=== PATIENT | male | born 1995 | race Caucasian/White ===

== ENCOUNTER 2019-05-04 03:28 | Inpatient (IN) ==
[2019-05-04 04:22] LABS: Basophils # (auto) 0.01 K/uL (0-0.2); Basophils % (auto) 0.2 %; Eosinophils # (auto) 0.04 K/uL (0-0.5); Eosinophils % (auto) 0.8 %; Hematocrit (blood only) 39.8 % (42-52); Hemoglobin 14.2 g/dL (14.0-18.0); Immature Granulocytes # (auto) 0.01 K/uL (0.00-0.02); Immature Granulocytes % (auto) 0.2 %; Lymphocytes # (auto) 1.65 K/uL (1.2-3.4); Lymphocytes % (auto) 32.5 %; Mean Corpuscular Hgb Conc 35.7 g/dL (32-36); Mean Corpuscular Volume 88.1 fL (80-100); Mean Platelet Volume 10.7 fL (7.4-10.4); Monocytes # (auto) 0.18 K/uL (0.11-0.59); Monocytes % (auto) 3.6 %; Neutrophils # (auto) 3.18 K/uL (1.4-6.5); Neutrophils % (auto) 62.7 %; Platelet Count 222 K/uL (130-400); RDW Coefficient of Variation 11.9 % (11.5-14.5); RDW Standard Deviation 38.3 fL (36.4-46.3); Red Blood Count 4.52 M/uL (4.7-6.1); White Blood Count 5.07 K/uL (4.8-10.8)
[2019-05-04 04:33] LABS: Albumin Level 4.6 gm/dl (3.4-5.0); BUN Creatinine Ratio 11.4 (10-20); Calcium 8.8 mg/dl (8.5-10.1); Creatinine Clr Calc Pharmacy 93.9 ml/min; Est GFR (African American) 89.8; Est GFR (Non-African American) 77.5
[2019-05-04 04:36] LABS: Acetaminophen < 2 ug/ml (10-30); Salicylate < 1.7 mg/dl (2.8-20)
[2019-05-04 04:43] LABS: Albumin Globulin Ratio 1.5 (0.9-2); Bilirubin,Total 0.7 mg/dl (0.2-1); Globulin 3.1 gm/dl (2.5-4.0); Total Protein 7.7 gm/dl (6.4-8.2)
[2019-05-04 04:44] LABS: Appearance Urine Clear (Clear); Bilirubin Urine Negative (Negative); Blood Urine Negative (Negative); Color Urine Yellow; Glucose Urine UA Negative (Negative); Ketones Urine Negative (Negative); Leukocyte Esterase Urine Negative (Negative); Nitrite Urine Negative (Negative); Protein Urine Negative (Negative); Specific Gravity Urine 1.012 (1.000-1.030); Urobilinogen Urine Negative (Negative); pH Urine 5.5 (4.5-7.5)
[2019-05-04 05:04] LABS: Amphetamines+Metham, Urine Neg (Neg); Barbiturates, Urine Neg (Neg); Benzodiazepine, Urine Neg (Neg); Cocaine, Urine Neg (Neg); MDMA (Ecstacy), Urine Neg (Neg); Methadone, Urine Neg (Neg); Opiate, Urine Neg (Neg); Phencyclidine, Urine Neg (Neg)
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
[2019-05-04] MEDS ORDERED: IBUPROFEN 600 MG TAB PO ONE (07:30)
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
[2019-05-04] MEDS ORDERED: ACETAMINOPHEN 325 MG TAB PO PRN (13:29)
[2019-05-04] MEDS ORDERED: SODIUM CHLORIDE 0.65% NA SOLN 45 ML (OCEAN) PRN (13:29)
[2019-05-04] MEDS ORDERED: BISMUTH SUBSALICYLATE PER ML OMNICELL CHARGE PO PRN (13:29)
[2019-05-04] MEDS ORDERED: MAGNESIUM HYDROXIDE SUSP 30 ML UDC PO PRN (13:29)
[2019-05-04] MEDS ORDERED: ALUMINUM/MAGNESIUM SUSP 30 ML UDC PO PRN (13:29)
--- NOTE | 2019-05-04 14:38 | History & Physical ---
Date of Service May 04, 2019 Impression / Recommendations Impression 24-year-old male admitted involuntarily for inpatient psychiatric treatment due to impulsive, highly dangerous behavior while intoxicated. Pt demonstrated very poor, and possibly life-threatening judgment in the context of alcohol use and had obtained a gun with concern from girlfriend he would use it to harm himself or her. Girlfriend felt patient was unsafe to remain at home and called police, who brought the patient to the ED. Given high risk of harm to self and others without adequate intervention, the patient was admitted for observation and treatment. Based on reports from patient alone, there is no clear criteria for an underlying psychiatric condition - though behavior demonstrated prior to admission is highly concerning. If left unaddressed, his habits and impulsive behavior are likely to result in harm to the patient or another individual. We will hold off on initiating psychotropic medications, as there is not a clear diagnosis of depression, anxiety, or other mood disorder. We will attempt to gather collateral information from the patient's girlfriend or family members regarding his mood and other behaviors. Will encourage a family meeting with supports to discuss aftercare and discharge planning. Pt will be encouraged to participate in group and recreational programming during his admission. Until further collateral can be obtained and safety planning can be discussed, patient is at high risk of harm to self or others. Inpatient psychiatric treatment is medically necessary at this time. Dr. Kayla Martin was directly involved in review and discussion of the patient's case and participated in medical decision making regarding treatment recommendations. (1) Alcohol overdose: 05/04 - Admitted to a locked inpatient behavioral health unit, on q15 minute safety checks - Encourage medication initiation/adjustments as indicated - Encourage participation in group and recreational therapies - Gather collateral information from outpatient providers - Suggest family meeting to involve outpatient supports in safety planning - Arrange appropriate aftercare - Pt denies symptoms consistent with an underlying mood disorder, though it would be beneficial to gather collateral information from other supports as patient may be minimizing symptoms. Continue to gather information, differential includes a depressive disorder, substance-induced mood disorder, as well as other possible concerns. Without collateral information to suggest otherwise, there is little indication to begin psychotropic medication to target mood or anxiety at this time. - Based on patient's reports alone, alcohol use does not seem to be significant with regard to frequency, but definitely harmful in regard to destructive behavior and lack of impulse control when intoxicated. - Brief intervention was offered and accepted Intervention was greater than 5 min in length. Brief interventions include: 1. Assess Readiness to Quit, 2. Advise: Help Patient to Reduce or Abstain from Alcohol, 3. Agree: Set Specific, Feasible Goals, 4. Assist: Anticipate barriers, Problem-Solving Solutions. Social work to 5. Arrange: Referrals to appropriate treatment. Summary of intervention: The patient is in the contemplative stage with regards to transtheoretical model of change. The patient is advised to decrease alcohol consumption due to depressant effects and risk of interactions with prescription medications. The patient was advised of recommendations for abstinence from alcohol and other abusable substances and to attend substance abuse treatment at discharge, and will be provided with recovery materials to continue to education self on how to cope with their condition without drinking. Encounter type: initial encounter Injury intent: accidental or unintentional Qualified Code(s): T51.91XA - Toxic effect of unspecified alcohol, accidental (unintentional), initial encounter Inventory Assets Strengths: Intelligence, supportive family, recognition of alcohol use concerns Needs: Services to address alcohol use, therapeutic intervention regarding behaviors Risk Factors Assessment Male: Yes : Yes Do You Have Access To A Gun?: Yes (currently secured by police) Health Problems: No Mental Health Diagnoses: No Substance Use Disorders: No Previous Attempt: No Family History of Suicide: Yes (remote, aunt who was unknown to patient) Previous Psychiatric Hospitalization: No Hopelessness: No Smoker: No Protective Factors Assessment Taoist Beliefs: Yes : No Responsible for Young Children: No 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 Pt denies a psychiatric history, but was admitted on 05/04/19 13:11 on a 302 involuntary commitment for impulsive behavior in the context of alcohol intoxication with very high risk for harm to self or others - having grabbed a gun, loaded it, and made serious threats. Information is gathered from ED documentation and the patient himself and is considered to be mostly reliable. Chief Complaint "I got drunk. I got drunk and got into an argument with my girlfriend." History of Present Illness Ismael Contreras is a 24-year-old male admitted involuntarily for inpatient psychiatric treatment on 05/04/19 due to highly lethal behavior demonstrated in the context of an argument with his girlfriend while he was under the influence. ED documentation states the patient was brought to the ED by police after the girlfriend had called, concerned for the safety of herself and the patient. They had reportedly been at a republican and began an argument on the walk home. Pt reportedly became belligerent and impulsive, having thrown objects and yelled insults at the girlfriend. Ultimately, patient had returned to their home and reportedly began throwing objects in the house at his girlfriend, and then took his gun out from under the bed, loaded it, and reportedly stated, "you made me do this, I hope you are happy." Pt's girlfriend left the room and called police, there is no clear indication if patient had directed the gun at either himself or his girlfriend. After medical clearance was granted, ED physician was recommending inpatient psychiatric treatment as it continued to seem patient was unsafe to return home. Pt was unwilling for this and a 302 involuntary commitment was pursued. Upon evaluation today, the patient admits that he was intoxicated and made poor decisions. Pt agrees that he and his girlfriend were engaged in an argument, though he is not sure the topic. He states, "it was stupid I'm sure, something that started out normal and then went political. I was angry so I left. When I came back I was locked out and that set me off." Pt states he gained access to the home by climbing onto the roof and sneaking in through a window where an AC unit was placed. He admits to throwing objects around the room and eventually reaching for his gun. Pt states "I don't know why I did it, it was stupid. I think I wanted her to feel bad, but I don't know. It was stupid and manipulative, and not ok." Pt admits to this is the most these events have escalated, but states he has a tendency to become belligerent when intoxicated. Pt reports heavy drinking "1-2 times a year, maybe," but states aggression and poor impulse control are not uncommon. Pt denies history of other substance abuse. Pt denies symptoms related to depression, anxiety, or a bipolar presentation. He has not known psychiatric history and no history of substance abuse treatment aside from ramifications from an underage drinking violation during his undergraduate studies. Pt does not feel he has any psychiatric symptoms requiring attention at this time. He admits to willingness to involve his girlfriend in a family meeting to discuss further. Pt denies SI, HI, SIB, A/V hallucinations, paranoia, nikhil/hypomania, other symptoms more suggestive of a bipolar presentation, OCD, PTSD, eating disorder, and other specific psychiatric symptoms. Past Psychiatric History Previous Psych History: None Current Psychiatric Diagnosis: None Outpatient Services: None Previous Psych Admissions: None Do You Have Access To A Gun?: Yes (currently secured by police) History of Previous Suicide Attempt: No Past Medication Trials: None Past Head Trauma/Neuro History History of Concussion/Seizure: Yes (1 confirmed concussion from high school sports injury) Allergies Allergy/AdvReac Type Severity Reaction Status Date / Time No Known Allergies Allergy Unverified 05/04/19 04:15 Home Medications Home Medications Medication Instructions Recorded Confirmed Type No Known Home Medications 05/04/19 05/04/19 History Family History Family History of: Suicide Completion (aunt, who was unknown to patient) Family Mental Health History Comment: Sister - "on medication for something, I just found out but I don't know what" Alcohol History Hx of Alcohol Use Over the Past 12 Months: Yes (Occassionally) Admits to alcohol use socially "occasionally" - limited to 1-2 beers with girlfriend or their parents. Pt admits to excessive, un-quantified alcohol use "a couple times a year", but admits to becoming belligerent and lacking impulse control. Pt reports cutting back on his alcohol use since his years in [facility]. Pt has a previous charge for underage drinking and public i ntoxication. Smoking Use Smoking Status: Never smoker Substance History Hx of Prescription Med Misuse Over the Past 12 Months: No Hx of Over the Counter Med Misuse Over the Past 12 Months: No Hx of Inhalent Misuse Over the Past 12 Months: No Hx of Organic Substance Use Over the Past 12 Months: No Hx of Illegal Substances/Street Drug Use Over Past 12 Months: No Personal History Living Arrangements: Apartment (with girlfriend) Born In: [place], [place] Childhood: Pt was raised by mother and father who remain . He has an older brother and older sister. 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 Physical Exam Psychiatric: Orientation: alert, oriented x 3 and cooperative (and pleasant) Apperance: appropriately dressed and appropriately groomed male appearing to be of healthy weight, casually dressed in t-shirt and gym shorts. Pt is well-groomed with short hair style and clean-shaven. Level of hygiene and hydration appear adequate. Eye Contact: good eye contact Motor Behavior: steady gait and station and no abnormal motor movements Speech: normal rate/rhythm/volume of speech Affect: euthymic affect and + tearful affect (initially, as had just gotten off phone with mother) Mood: no depressed mood and no anxious mood Thought Process: goal directed thought process, linear/logical thought process and clear/coherent thought process Thought Co ntent: reality based without delusions; no hopelessness and no worthlessness Suicidal Thoughts: denies suicidal thoughts and denies suicidal plan Homicidal Thoughts: denies homicidal thoughts Hallucinations: no auditory hallucinations and no visual hallucinations Cognition: remote memory grossly intact, attention grossly intact and language grossly intact Estimated Intelligence: consistent with education level Insight: + fair insight Judgement: + fair judgement Vital Signs (Past 24 Hours): Last Vital Signs Temp 36.9 C 05/04/19 03:33 Pulse 86 05/04/19 12:16 Resp 18 05/04/19 12:16 BP 150/69 H 05/04/19 12:16 Pulse Ox 99 05/04/19 12:16 Exam Statement: A physical exam was performed in the ER prior to admission to the unit by Dr. Betsey Walker DO. I accept that physical as correct/medical clearance for the inpatient physical exam. Results & Data Laboratory Results Laboratory Results - last 24 hr 05/04/19 05/04/19 05/04/19 04:01 04:01 04:01 WBC 5.07 RBC 4.52 L Hgb 14.2 Hct 39.8 L MCV 88.1 MCH 31.4 MCHC 35.7 RDW Std Deviation 38.3 RDW Coeff of Myron 11.9 Plt Count 222 MPV 10.7 H Immature Gran % (Auto) 0.2 Neut % (Auto) 62.7 Lymph % (Auto) 32.5 [place] % (Auto) 3.6 Eos % (Auto) 0.8 Baso % (Auto) 0.2 Immature Gran # (Auto) 0.01 Neut # (Auto) 3.18 Lymph # (Auto) 1.65 [place] # (Auto) 0.18 Eos # (Auto) 0.04 Baso # (Auto) 0.01 Sodium 137 Potassium 4.0 Chloride 105 Carbon Dioxide 25 Anion Gap 7.0 BUN 15 Creatinine 1.27 Est Cr Clr Drug Dosing 93.9 Est GFR ( Amer) 89.8 Est GFR (Non-Af Amer) 77.5 BUN/Creatinine Ratio 11.4 Glucose 93 Calcium 8.8 Total Bilirubin 0.7 AST 53 H ALT 63 Alkaline Phosphatase 51 Total Protein 7.7 Albumin 4.6 Globulin 3.1 Albumin/Globulin Ratio 1.5 TSH 2.230 Urine Color Urine Appearance Urine pH Ur Specific [place] Urine Protein Urine Glucose (UA) Urine Ketones Urine Blood Urine Nitrite Urine Bilirubin Urine Urobilinogen Ur Leukocyte Esterase Salicylates < 1.7 L Urine Opiates Screen Ur Methadone, Qual Acetaminophen < 2 L Urine Barbiturates Ur Phencyclidine (PCP) U Amphetamin/Meth Scrn MDMA (Ecstasy) Screen U Benzodiazepines Scrn Ur Cocaine Metabolite U Marijuana (THC) Screen Ethyl Alcohol mg/dL 05/04/19 05/04/19 05/04/19 04:01 04:32 04:32 WBC RBC Hgb Hct MCV MCH MCHC RDW Std Deviation RDW Coeff of Myron Plt Count MPV Immature Gran % (Auto) Neut % (Auto) Lymph % (Auto) [place] % (Auto) Eos % (Auto) Baso % (Auto) Immature Gran # (Auto) Neut # (Auto) Lymph # (Auto) [place] # (Auto) Eos # (Auto) Baso # (Auto) Sodium Potassium Chloride Carbon Dioxide Anion Gap BUN Creatinine Est Cr Clr Drug Dosing Est GFR ( Amer) Est GFR (Non-Af Amer) BUN/Creatinine Ratio Glucose Calcium Total Bilirubin AST ALT Alkaline Phosphatase Total Protein Albumin Globulin Albumin/Globulin Ratio TSH Urine Color Yellow Urine Appearance Clear Urine pH 5.5 Ur Specific [place] 1.012 Urine Protein Negative Urine Glucose (UA) Negative Urine Ketones Negative Urine Blood Negative Urine Nitrite Negative Urine Bilirubin Negative Urine Urobilinogen Negative Ur Leukocyte Esterase Negative Salicylates Urine Opiates Screen Neg Ur Methadone, Qual Neg Acetaminophen Urine Barbiturates Neg Ur Phencyclidine (PCP) Neg U Amphetamin/Meth Scrn Neg MDMA (Ecstasy) Screen Neg U Benzodiazepines Scrn Neg Ur Cocaine Metabolite Neg U Marijuana (THC) Screen Neg Ethyl Alcohol mg/dL 200.0 H Current Inpatient Medications Current Inpatient Medications: Current Inpatient Medications Acetaminophen (Tylenol) 650 mg PO Q4H PRN PRN Reason: Headache or Minor Fever Stop: 06/03/19 13:28 Al Hydrox/Mg Hydrox/Simethicone (Maalox) 30 ml PO Q4H PRN PRN Reason: GI Upset Stop: 06/03/19 13:28 Bismuth Subsalicylate (Kaopectate) 15 ml PO PRN PRN PRN Reason: Loose Stool Stop: 06/03/19 13:28 Hydroxyzine HCl (Vistaril) 50 mg PO HSZ PRN PRN Reason: Insomnia Stop: 06/03/19 13:28 Hydroxyzine HCl (Vistaril) 25 mg PO Q4H PRN PRN Reason: Anxiety Stop: 06/03/19 13:28 Magnesium Hydroxide (Milk Of Magnesia) 30 ml PO DAILY PRN PRN Reason: Heartburn Stop: 06/03/19 13:28 Sodium Chloride ([place] Nasal) 1 - 2 sprays NA PRN PRN PRN Reason: Nasal Dryness/Congestion Stop: 06/03/19 13:28 CPT Code CPT Code Initial Hospital Care: [id number]
[2019-05-04] MEDS ORDERED: IBUPROFEN 600 MG TAB PO PRN (15:12)
--- NOTE | 2019-05-05 10:55 | Psychiatric Progress Note ---
Date of Service May 05, 2019 Impression / Recommendations Impression 24-year-old male admitted involuntarily for inpatient psychiatric treatment after an incident with his girlfriend where he caused property damage in his home, broke a door and multiple items, then got out a hand gun, loaded it, and told his girlfriend "I hope you're happy, this is your fault, you made me do this." Police were called and in the emergency room, he was unwilling for voluntary treatment and was admitted involuntarily. He has been cooperative here on the unit and has a meeting with his girlfriend today. He is indicating willingness to abstain from alcohol and is considering outpatient counseling. The differential diagnosis includes major depressive disorder (although he reports minimal mood symptoms, we will need to get collateral information from his girlfriend), substance-induced mood disorder, intermittent explosive disorder, alcohol use disorder. Inpatient treatment is medically necessary due to the risk of harm to himself if discharged prematurely and need to continue to monitor and assess while collecting collateral information and arranging appropriate aftercare. (1) Alcohol overdose: 05/04 - Admitted to a locked inpatient behavioral health unit, on q15 minute safety checks - Encourage medication initiation/adjustments as indicated - Encourage participation in group and recreational therapies - Gather collateral information from outpatient providers - Suggest family meeting to involve outpatient supports in safety planning - Arrange appropriate aftercare - Pt denies symptoms consistent with an underlying mood disorder, though it would be beneficial to gather collateral information from other supports as patient may be minimizing symptoms. Continue to gather information, differential includes a depressive disorder, substance-induced mood disorder, as well as other possible concerns. Without collateral information to suggest otherwise, there is little indication to begin psychotropic medication to target mood or anxiety at this time. - Based on patient's reports alone, alcohol use does not seem to be significant with regard to frequency, but definitely harmful in regard to destructive behavior and lack of impulse control when intoxicated. - Brief intervention was offered and accepted Intervention was greater than 5 min in length. Brief interventions include: 1. Assess Readiness to Quit, 2. Advise: Help Patient to Reduce or Abstain from Alcohol, 3. Agree: Set Specific, Feasible Goals, 4. Assist: Anticipate barriers, Problem-Solving Solutions. Social work to 5. Arrange: Referrals to appropriate treatment. Summary of intervention: The patient is in the contemplative stage with regards to transtheoretical model of change. The patient is advised to decrease alcohol consumption due to depressant effects and risk of interactions with prescription medications. The patient was advised of recommendations for abstinence from alcohol and other abusable substances and to attend substance abuse treatment at discharge, and will be provided with recovery materials to continue to education self on how to cope with their condition without drinking. 05/05 -Most likely diagnosis based on available information is alcohol use disorder, although will be helpful to get collateral from girlfriend to help rule out depression and intermittent explosive disorder. -Continue recovery protocol. -Family meeting with girlfriend today. -Discussed recommendation for outpatient therapy, patient may benefit from a therapist who can help explore his anger issues as well as alcohol misuse. He is considering this but is unsure whether or not he thinks it would be helpful. Inventory Assets Strengths: Intelligence, supportive family, recognition of alcohol use concerns Needs: Services to address alcohol use, therapeutic intervention regarding behaviors Risk Factors Assessment Male: Yes : Yes Do You Have Access To A Gun?: Yes (currently secured by police) Health Problems: No Mental Health Diagnoses: No Substance Use Disorders: No Previous Attempt: No Family History of Suicide: Yes (remote, aunt who was unknown to patient) Previous Psychiatric Hospitalization: No Hopelessness: No Smoker: No Protective Factors Assessment Temple Beliefs: Yes : No Responsible for Young Children: No 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 Chief Complaint "I feel really bad for my girlfriend, and my parents, for what I did and everything". Review of Systems Notes Denies symptoms of alcohol withdrawal (sweating, tremor, headache, nausea) Sleep Information Total Hours of Sleep: 6.5 Meal Information Percent Meal Consumed - Breakfast: 100 Percent Meal Consumed - Dinner: 80 Subjective Subjective Patient was seen & assessed and interval progress reviewed. Per staff, he has been engaged in treatment, talked about his problems with anger and drinking, and is willing to work towards abstinence. He has been attending and participating in groups. He has a family meeting scheduled with his girlfriend this afternoon. On my assessment, he reports feeling badly about the events prior to admission, but continues to deny symptoms consistent with depression and anxiety. He describes himself as "laid back," denies significant stressors, and reports good support from his girlfriend and family. He admits to problems with anger, which occur solely when intoxicated, and are infrequent. 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 He states that he does not drink frequently, and typically has 1 drink socially with friends or family, and only rarely drinks to excess. He denies urges to drink, other than when he is already intoxicated. He states his plan is to abstain from alcohol, which his girlfriend is in support of. He is willing to consider therapy to explore underlying anger issues, but is not sure if it is warranted. 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 Physical Exam Psychiatric Orientation: alert, oriented x 3 and cooperative Apperance: appropriately dressed, appropriately groomed and appeared stated age Eye Contact: good eye contact Motor Behavior: steady gait and station and no abnormal motor movements Speech: normal rate/rhythm/volume of speech Affect: euthymic affect (Mildly anxious) "I feel bad about what happened." Thought Process: goal directed thought process Thought Content: reality based without delusions Suicidal Thoughts: denies suicidal thoughts Homicidal Thoughts: denies homicidal thoughts Hallucinations: no auditory hallucinations Cognition: recent memory grossly intact, attention grossly intact and language grossly intact Estimated Intelligence: consistent with education level Insight: + fair insight Judgement: + fair judgement Vital Signs (Past 24 Hours) Last Vital Signs Temp 36.4 C L 05/05/19 06:43 Pulse 74 05/05/19 06:45 Resp 16 05/05/19 06:43 BP 142/88 H 05/05/19 06:45 Pulse Ox 99 05/04/19 12:16 Results & Data Current Inpatient Medications Current Inpatient Medications: Current Inpatient Medications Acetaminophen (Tylenol) 650 mg PO Q4H PRN PRN Reason: Headache or Minor Fever Stop: 06/03/19 13:28 Al Hydrox/Mg Hydrox/Simethicone (Maalox) 30 ml PO Q4H PRN PRN Reason: GI Upset Stop: 06/03/19 13:28 Bismuth Subsalicylate (Kaopectate) 15 ml PO PRN PRN PRN Reason: Loose Stool Stop: 06/03/19 13:28 Hydroxyzine HCl (Vistaril) 50 mg PO HSZ PRN PRN Reason: Insomnia Stop: 06/03/19 13:28 Hydroxyzine HCl (Vistaril) 25 mg PO Q4H PRN PRN Reason: Anxiety Stop: 06/03/19 13:28 Ibuprofen (Motrin) 600 mg PO Q6H PRN PRN Reason: Pain Stop: 06/03/19 15:11 Magnesium Hydroxide (Milk Of Magnesia) 30 ml PO DAILY PRN PRN Reason: Heartburn Stop: 06/03/19 13:28 Sodium Chloride ([place] Nasal) 1 - 2 sprays NA PRN PRN PRN Reason: Nasal Dryness/Congestion Stop: 06/03/19 13:28 Post Discharge Appointments Primary Care Physician Name Of Family Doctor: None Therapist Name of Therapist: None Carburizing Furnace Operator Name of Carburizing Furnace Operator: None CPT Code CPT Code 81347 (1) Alcohol overdose Encounter type: initial encounter Injury intent: accidental or unintentional Qualified Code(s): T51.91XA - Toxic effect of unspecified alcohol, accidental (unintentional), initial encounter
--- NOTE | 2019-05-06 09:36 | Discharge Summary ---
Date of Service May 06, 2019 History of Present Illness Asad Contreras is a 24-year-old male admitted involuntarily for inpatient psychiatric treatment on 05/04/19 due to highly lethal behavior demonstrated in the context of an argument with his girlfriend while he was under the influence. ED documentation states the patient was brought to the ED by police after the girlfriend had called, concerned for the safety of herself and the patient. They had reportedly been at a republic[employer] and began an argument on the walk home. Pt reportedly became belligerent and impulsive, having thrown objects and yelled insults at the girlfriend. Ultimately, patient had returned to their home and reportedly began throwing objects in the house at his girlfriend, and then took his gun out from under the bed, loaded it, and reportedly stated, "you made me do this, I hope you are happy." Pt's girlfriend left the room and called police, there is no clear indication if patient had directed the gun at either himself or his girlfriend. After medical clearance was granted, ED physician was recommending inpatient psychiatric treatment as it continued to seem patient was unsafe to return home. Pt was unwilling for this and a 302 involuntary commitment was pursued. Upon evaluation today, the patient admits that he was intoxicated and made poor decisions. Pt agrees that he and his girlfriend were engaged in an argument, though he is not sure the topic. He states, "it was stupid I'm sure, something that started out normal and then went political. I was angry so I left. When I came back I was locked out and that set me off." Pt states he gained access to the home by climbing onto the roof and sneaking in through a window where an AC unit was placed. He admits to throwing objects around the room and eventually reaching for his gun. Pt states "I don't know why I did it, it was stupid. I think I wanted her to feel bad, but I don't know. It was stupid and manipulative, and not ok." Pt admits to this is the most these events have escalated, but states he has a tendency to become belligerent when intoxicated. Pt reports heavy drinking "1-2 times a year, maybe," but states aggression and poor impulse control are not uncommon. Pt denies history of other substance abuse. Pt denies symptoms related to depression, anxiety, or a bipolar presentation. He has not known psychiatric history and no history of substance abuse treatment aside from ramifications from an underage drinking violation during his undergraduate studies. Pt does not feel he has any psychiatric symptoms requiring attention at this time. He admits to willingness to involve his girlfriend in a family meeting to discuss further. Pt denies SI, HI, SIB, A/V hallucinations, paranoia, nikhil/hypomania, other symptoms more suggestive of a bipolar presentation, OCD, PTSD, eating disorder, and other specific psychiatric symptoms. Physical Exam Psychiatric Orientation: alert, oriented x 3 and cooperative (and pleasant) Apperance: appropriately dressed, appropriately groomed and appeared stated age Eye Contact: good eye contact Motor Behavior: steady gait and station and no abnormal motor movements Speech: normal rate/rhythm/volume of speech Affect: euthymic affect "I feel like I'm doing really well." Thought Process: goal directed thought process, linear/logical thought process and clear/coherent thought process Thought Content: reality based without delusions; no hopelessness, no worthlessness and no guilt Suicidal Thoughts: denies suicidal thoughts, denies suicidal plan and denies suicidal intent Homicidal Thoughts: denies homicidal thoughts Hallucinations: no auditory hallucinations and no visual hallucinations Cognition: recent memory grossly intact, remote memory grossly intact, attention grossly intact and language grossly intact Estimated Intelligence: consistent with education level Insight: good insight Judgement: good judgement Vital Signs (Past 24 Hours) Last Vital Signs Temp 36.4 C L 05/06/19 06:44 Pulse 80 05/06/19 06:45 Resp 18 05/06/19 06:44 BP 128/80 05/06/19 06:45 Pulse Ox 99 05/04/19 12:16 Principal Diagnosis No clear psychiatric disorder; alcohol intoxication/overdose Psychiatric Data 24-year-old male admitted involuntarily for inpatient psychiatric treatment on 05/04/19 due to impulsive behavior with high lethal potential in the context of alcohol intoxication and an argument with his girlfriend. Pt was felt to be unsafe to return home by girlfriend who is one of his main supports. Psychiatric evaluation and treatment was recommended to determine the presence of an underlying psychiatric condition and to rule out the presence of suicidal or homicidal ideation outside of the context of substance abuse. Given the highly lethal risk of his actions, it was also important to gather collateral information from outpatient supports prior to determining that patient was safe for discharge home. Pt was evaluated and admitted to history of anger, agitation, and impulsive/destructive behavior within the context of alcohol use. He did not verbalize symptoms consistent with a depressive disorder or anxiety. No obvious criteria for hypomania/nikhil, and SI/HI was denied. Based on these reports, there was no indication to initiate psychotropic medications. During the patient's admission, he was willing to have his girlfriend involved in a family meeting to discuss any concerns and to ensure supports felt comfortable with him returning home. Pt had acknowledged the drastic change in behavior with alcohol use, and determined that he needs to abstain from alcohol. He was accepting of referrals for D&A counseling to assist him in this process. Girlfriend had denied any concerns with regard to an underlying psychiatric condition. They both felt comfortable with the patient returning home, and aftercare and discharge planning was discussed. At time of discharge, patient was future oriented and continued to deny SI/HI. He had participated appropriately in group and recreational therapies and was supportive of peers. Pt denies any concerns related to the idea of discharge. At this time, he does not appear to be at acute risk of harm to himself or others and acknowledges steps necessary to prevent future events such as this from occurring. 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 Pt verbalized understanding of discharge plan and is agreeable with discharge home today. Day of Discharge Assessment Patient's case was reviewed and discussed during treatment team. Staff reports the patient has continued to participate in group and recreational programming, and has been supportive of peers. Meeting with girlfriend was held over the weekend, no underlying mental health concerns could be illicited. Pt was seen today to assess readiness for discharge. Pt states he is doing "really well." He states he is hopeful for discharge today. He felt the time he spent on the unit to be beneficial, but admits to feeling somewhat out of place as he does not feel that he really struggles with psychiatric concerns or with substance abuse. Pt states, "it's not like I crave alcohol, I can go a long time without drinking - and I don't always end up acting like this." Pt agrees with recommendation for D&A counseling and other outpatient resources. This provider acknowledged that the patient does not entirely fit the typical presentation of a substance abuser, but that it will still be beneficial to equip himself with necessary tools to abstain from alcohol in order to prevent progression of concerns as well as to avoid future incidents similar to what led to his admission. Pt is understanding of this, and feels it will be helpful to have these tools. Pt states he has had communication with his girlfriend, his parents, and her parents to discuss concerns and they all feel the patient does not yet have a substance abuse problem - but agree that he would benefit from abstaining from alcohol. Pt does not feel that this will be a difficult task. Pt feels ready for discharge today and denies any acute concerns. Based on review of patient's case and their current presentation, risk of harm to self or others is no longer perceived to be acute. Management of symptoms on an outpatient basis seems the most appropriate and least restrictive setting. Pt seems appropriate for discharge with recommendation for consistent follow-up with outpatient therapist. Pt verbalized understanding of discharge plan reviewed and is agreeable with plan to be discharged home today. ROS: Constitutional: denied Cardiovascular: denied Respiratory: denied Gastrointestinal: denied Neurological: denied Psychiatric: denies symptoms other than stated above Total of at least 10 systems reviewed, pertinent positives as above and in HPI. Transition of Care Transition Of Care Record: was reviewed with the patient Advance Directives Advance Directives Information Provided: Yes Advance Directives: No Mental Health Advance Directive: No Advance Directives on File: No Living Will: No Power of Valet: No Advance Directives Reason:: Declines as Mental Health Visit. Risk Factors Assessment Presenting risk factors reviewed on discharge. Precipitating stressors mitigated by: admission for inpatient psychiatric observation and treatment, attendance of therapeutic treatment groups, development of healthy and effective coping strategies, involvement of outpatient supports, completion of a safety plan, confirmation of guns and weapons being secured, discussion regarding substance abuse and effects on mental health diagnoses, and education on diagnoses. Pt has demonstrated improvement in condition with regard to involvement of and communication with supports and referral for D&A counseling. At this time, patient is requesting discharge and is no longer considered to be at acute risk of harm to himself or others. Pt will be discharged with recommendation for ongoing outpatient psychiatric treatment. Male: Yes : Yes Do You Have Access To A Gun?: Yes (currently secured by police) Health Problems: No Mental Health Diagnoses: No Substance Use Disorders: No Previous Attempt: No Family History of Suicide: Yes (remote, aunt who was unknown to patient) Previous Psychiatric Hospitalization: No Hopelessness: No Smoker: No Protective Factors Assessment Christian Beliefs: Yes : No Responsible for Young Children: No Employed: Yes ([employer]) Stable Relationships: Yes Supportive Family: Yes Tobacco Cessation at Discharge Tobacco Cessation Medication Prescribed at Discharge: Not Applicable/Non-Smoker Total Time Total Time Spent: Greater Than 30 Minutes Total Time Includes: Examination of the patient, Discharge Planning, Medication Reconciliation and Communication with other providers Discharge Data Lab Results 05/04/19 05/04/19 05/04/19 04:01 04:01 04:01 WBC 5.07 RBC 4.52 L Hgb 14.2 Hct 39.8 L MCV 88.1 MCH 31.4 MCHC 35.7 RDW Std Deviation 38.3 RDW Coeff of Myron 11.9 Plt Count 222 MPV 10.7 H Immature Gran % (Auto) 0.2 Neut % (Auto) 62.7 Lymph % (Auto) 32.5 Grundy % (Auto) 3.6 Eos % (Auto) 0.8 Baso % (Auto) 0.2 Immature Gran # (Auto) 0.01 Neut # (Auto) 3.18 Lymph # (Auto) 1.65 Grundy # (Auto) 0.18 Eos # (Auto) 0.04 Baso # (Auto) 0.01 Sodium 137 Potassium 4.0 Chloride 105 Carbon Dioxide 25 Anion Gap 7.0 BUN 15 Creatinine 1.27 Est Cr Clr Drug Dosing 93.9 Est GFR ( Amer) 89.8 Est GFR (Non-Af Amer) 77.5 BUN/Creatinine Ratio 11.4 Glucose 93 Calcium 8.8 Total Bilirubin 0.7 AST 53 H ALT 63 Alkaline Phosphatase 51 Total Protein 7.7 Albumin 4.6 Globulin 3.1 Albumin/Globulin Ratio 1.5 TSH 2.230 Urine Color Urine Appearance Urine pH Ur Specific [place] Urine Protein Urine Glucose (UA) Urine Ketones Urine Blood Urine Nitrite Urine Bilirubin Urine Urobilinogen Ur Leukocyte Esterase Salicylates < 1.7 L Urine Opiates Screen Ur Methadone, Qual Acetaminophen < 2 L Urine Barbiturates Ur Phencyclidine (PCP) U Amphetamin/Meth Scrn MDMA (Ecstasy) Screen U Benzodiazepines Scrn Ur Cocaine Metabolite U Marijuana (THC) Screen Ethyl Alcohol mg/dL 05/04/19 05/04/19 05/04/19 04:01 04:32 04:32 WBC RBC Hgb Hct MCV MCH MCHC RDW Std Deviation RDW Coeff of Myron Plt Count MPV Immature Gran % (Auto) Neut % (Auto) Lymph % (Auto) Grundy % (Auto) Eos % (Auto) Baso % (Auto) Immature Gran # (Auto) Neut # (Auto) Lymph # (Auto) Grundy # (Auto) Eos # (Auto) Baso # (Auto) Sodium Potassium Chloride Carbon Dioxide Anion Gap BUN Creatinine Est Cr Clr Drug Dosing Est GFR ( Amer) Est GFR (Non-Af Amer) BUN/Creatinine Ratio Glucose Calcium Total Bilirubin AST ALT Alkaline Phosphatase Total Protein Albumin Globulin Albumin/Globulin Ratio TSH Urine Color Yellow Urine Appearance Clear Urine pH 5.5 Ur Specific [place] 1.012 Urine Protein Negative Urine Glucose (UA) Negative Urine Ketones Negative Urine Blood Negative Urine Nitrite Negative Urine Bilirubin Negative Urine Urobilinogen Negative Ur Leukocyte Esterase Negative Salicylates Urine Opiates Screen Neg Ur Methadone, Qual Neg Acetaminophen Urine Barbiturates Neg Ur Phencyclidine (PCP) Neg U Amphetamin/Meth Scrn Neg MDMA (Ecstasy) Screen Neg U Benzodiazepines Scrn Neg Ur Cocaine Metabolite Neg U Marijuana (THC) Screen Neg Ethyl Alcohol mg/dL 200.0 H Hospital Course (1) Alcohol overdose: 05/04 - Admitted to a locked inpatient behavioral health unit, on q15 minute safety checks - Encourage medication initiation/adjustments as indicated - Encourage participation in group and recreational therapies - Gather collateral information from outpatient providers - Suggest family meeting to involve outpatient supports in safety planning - Arrange appropriate aftercare - Pt denies symptoms consistent with an underlying mood disorder, though it would be beneficial to gather collateral information from other supports as patient may be minimizing symptoms. Continue to gather information, differential includes a depressive disorder, substance-induced mood disorder, as well as other possible concerns. Without collateral information to suggest otherwise, there is little indication to begin psychotropic medication to target mood or anxiety at this time. - Based on patient's reports alone, alcohol use does not seem to be significant with regard to frequency, but definitely harmful in regard to destructive behavior and lack of impulse control when intoxicated. - Brief intervention was offered and accepted Intervention was greater than 5 min in length. Brief interventions include: 1. Assess Readiness to Quit, 2. Advise: Help Patient to Reduce or Abstain from Alcohol, 3. Agree: Set Specific, Feasible Goals, 4. Assist: Anticipate barriers, Problem-Solving Solutions. Social work to 5. Arrange: Referrals to appropriate treatment. Summary of intervention: The patient is in the contemplative stage with regards to transtheoretical model of change. The patient is advised to decrease alcohol consumption due to depressant effects and risk of interactions with prescription medications. The patient was advised of recommendations for abstinence from alcohol and other abusable substances and to attend substance abuse treatment at discharge, and will be provided with recovery materials to continue to education self on how to cope with their condition without drinking. 05/05 -Most likely diagnosis based on available information is alcohol use disorder, although will be helpful to get collateral from girlfriend to help rule out depression and intermittent explosive disorder. -Continue recovery protocol. -Family meeting with girlfriend today. -Discussed recommendation for outpatient therapy, patient may benefit from a therapist who can help explore his anger issues as well as alcohol misuse. He is considering this but is unsure whether or not he thinks it would be helpful. Post Discharge Appointments Primary Care Physician Name Of Family Doctor: None Smoking Cessation Counseling Tobacco Cessation Medication Prescribed at Discharge: Not Applicable/Non-Smoker Other #1: Name of Aftercare Appointment: Refer to [facility] information for meetings Discharge Plan Discharge Items Patient Disposition: Home - Self-Care Reason For Visit: DEPRESSION Discharge Diagnosis: Alcohol intoxication Condition: Good Discharge Goals: Decrease discomfort, Improve function, Increase independence, Learn about illness, Specific goals and Therapeutic intervention Specific Goals: abstaining from alcohol Activity: Resume your previous activity Non-emergency contact: Primary Care Provider and Therapist Call non-emergency contact if: you have any medication questions and your symptoms worsen Follow-up/Referrals: PCP,NO [Primary Care Provider] - Diet: Regular Addtl Provider Instructions: SPECIAL CARE INSTRUCTIONS: 1. Follow through with your scheduled aftercare appointments. If unable to keep an appointment, please call to reschedule. 2. Take your medication only as prescribed. Medication should not be changed or stopped without the approval of your doctor. In the event of worsening symptoms or concerns about side effects, contact your doctor immediately. 3. Utilize new healthy coping skills, anger management skills, and stress management skills learned during your hospitalization. Journal feelings and process them with a support person. Identify stressors or situations that may result in relapse, deterioration or inappropriate behaviors and develop a plan to deal with those issues. 4. If your coping skills are ineffective and you are in crisis, contact your outpatient providers for direction. If unable to reach your providers, please call the CAN HELP LINE AT or go to the closest Emergency Room. 5. Avoid alcohol and un-prescribed drugs. 6. You have been provided with the Mental Health Advance Directives Pamphlet for your review. AFTERCARE APPOINTMENTS: * Please call your insurance company prior to your scheduled appointment to confirm your aftercare providers are covered. Take your insurance information to your appointments. WHO TO CALL AND WHEN: Medical Emergencies: For questions or emergencies related to your hospital stay, please contact the Inpatient Behavioral Health Unit at [phone]. A margin clerk is on-call 29/05 for the Behavioral Health Unit for emergencies At any time you feel your situation is an emergency, you may also call 911 im mediately. Your Doctors Instructions noted above were prepared by provider Kristen Nieto PA-C. Prescriptions: No Action No Known Home Medications RF: 0 Stand-Alone Forms: [facility] Discharge Orders: Discharge Order (Routine); Ordered 05/06/19 Ordered By: Kristen Nieto Admission Data Admit Date/Time: 05/04/19 13:11 Attending Provider: Kayla Martin Admit Provider: Kayla Martin Primary Care Provider: PCP,LEW Service: Psychiatry Other Interventions: Discharge Summary Assessment (RN) Last Done: 05/06/19 11:27 PSY Interdisciplinary Discharge Planning Last Done: 05/06/19 11:38 Pending Studies at Discharge: No DC Date/Time DO NOT enter until pt leaves facility: 05/06/19 12:15
== END 2019-05-06 12:15 | disposition home or self-care (01) | DRG 918 ==
LOC: ED 03:28 → 3S 12:55